=== PATIENT | male | born 1935 | race Caucasian/White ===

== ENCOUNTER 2020-05-20 18:02 | Inpatient (IN) | payer OTHER ==
[2020-05-20 18:23] VITALS: BMI 21.2
[2020-05-20 19:02] LABS: BASO % 0.2 % (0-2.0); EOS % 0.4 % (0-4.5); HEMOGLOBIN 12.2 GM/dl (11.7-16.9); MCH 29.4 pg (25.7-33.7); MEAN CELL VOLUME 89.1 fl (80-96); MEAN PLT VOLUME 7.8 fl (7.5-11.1); MONO % 6.3 % (3.8-10.2); NEUT % 88.1 % (42.8-82.8); PLATELET COUNT 270 K/MM3 (134-434); RBC 4.16 M/mm3 (4.00-5.60); RDW 13.4 % (11.9-15.9); WHITE BLOOD COUNT 6.6 K/mm3 (4.0-10.8)
[2020-05-20 19:10] LABS: ALBUMIN 3.3 g/dl (3.4-5.0); BILIRUBIN,TOTAL 0.7 mg/dl (0.2-1); CALCIUM 8.9 mg/dl (8.5-10); CREATININE 0.9 mg/dl (0.55-1.3); TOT PROT 6.7 g/dl (6.4-8.2)
[2020-05-20] MEDS ORDERED: oxyCODONE HCL 5 MG TABLET PO ONE (19:55)
[2020-05-20] MEDS ORDERED: oxyCODONE HCL 5 MG TABLET ONE (19:56)
[2020-05-20] MEDS ORDERED: LORazepam 2 MG/ML SDV VIAL ONE (23:10)
[2020-05-20] MEDS ORDERED: LORazepam 1 MG TABLET PO ONE (23:15)
[2020-05-20] MEDS: DEXTROSE 5%-NORMAL SALINE 1,000 ML IV SCH (23:50)
[2020-05-21] MEDS ORDERED: morphine SULFATE 4 MG/ML VIAL ONE (02:03)
[2020-05-21] MEDS ORDERED: morphine SULFATE 4 MG/ML VIAL IVPUSH PRN (06:19)
[2020-05-21] MEDS ORDERED: LORazepam 2 MG/ML SDV VIAL IVPUSH PRN (06:20)
[2020-05-21 07:58] LABS: BASO % 0.4 % (0-2.0); EOS % 0.4 % (0-4.5); HEMOGLOBIN 12.4 GM/dl (11.7-16.9); LYMPH % 10.2 % (8-40); MCH 29.5 pg (25.7-33.7); MCHC 32.6 g/dl (32.0-35.9); MEAN CELL VOLUME 90.5 fl (80-96); MEAN PLT VOLUME 7.9 fl (7.5-11.1); MONO % 8.1 % (3.8-10.2); NEUT % 80.9 % (42.8-82.8); PLATELET COUNT 260 K/MM3 (134-434); RBC 4.19 M/mm3 (4.00-5.60); RDW 13.8 % (11.9-15.9); WHITE BLOOD COUNT 4.9 K/mm3 (4.0-10.8)
[2020-05-21 08:05] LABS: ALBUMIN 3.3 g/dl (3.4-5.0); CALCIUM 8.8 mg/dl (8.5-10); CREATININE 0.7 mg/dl (0.55-1.3); MAGNESIUM 1.6 mg/dL (1.8-2.4); PHOSPHOROUS 3.5 mg/dl (2.5-4.9); TOT PROT 6.7 g/dl (6.4-8.2)
[2020-05-21 08:09] LABS: ACTIVATED PTT 27.3 SECONDS (25.2-36.5)
[2020-05-21 08:13] LABS: INR 1.18 (0.82-1.09); PROTHROMBIN TIME (PATIENT) 13.1 SEC (10.2-13.0)
[2020-05-21] MEDS ORDERED: ACETAMINOPHEN 1000 MG/100 ML BAG IVPB PRN (09:44)
[2020-05-21] MEDS ORDERED: HEPARIN NA (PORCINE) 5,000 UNITS/ML 1ML VIAL SQ SCH (10:00)
[2020-05-21] MEDS: KETOROLAC TROMETHAMINE 30 MG/1 ML VIAL IVPUSH SCH ×2 (10:06→17:34)
[2020-05-21] MEDS ORDERED: MAGNESIUM SULF 50% (8.12 MEQ/2 ML-1 GM VIAL) IVPB ONE (12:18)
[2020-05-21] MEDS ORDERED: MAGNESIUM SULFATE IN WATER 2 GM/50 ML IVPB IVPB ONE (12:30)
[2020-05-21] MEDS ORDERED: FENTANYL PATCH WASTE MC PRN (18:56)
[2020-05-21] MEDS ORDERED: LORazepam 1 MG TABLET PO SCH (19:00)
[2020-05-21] MEDS ORDERED: fentaNYL 100mcg/hr PATCH.TD72 TD SCH (19:00)
[2020-05-21] MEDS ORDERED: PATIENT'S OWN MEDICATION (NON-FORMULARY) (Oxycodone Hcl [Roxicodone] 15 MG Tablet) PO SCH (19:00)
[2020-05-21] MEDS ORDERED: fentaNYL 50mcg/hr PATCH.TD72 TD SCH (20:30)
[2020-05-21] MEDS: LORazepam 1 MG TABLET PO SCH (21:39)
[2020-05-22] MEDS: DEXTROSE 5%-NORMAL SALINE 1,000 ML IV SCH (00:02)
[2020-05-22] MEDS: KETOROLAC TROMETHAMINE 30 MG/1 ML VIAL IVPUSH SCH ×3 (01:27→17:40)
[2020-05-22] MEDS: LORazepam 1 MG TABLET PO SCH (21:14)
[2020-05-22] MEDS: DORZOLAMIDE 2% HCL OPHTHALMIC SOLUTION 10 ML BOTTLE OU SCH (21:15)
[2020-05-22] MEDS: BRIMONIDINE TARTRATE 0.2% OPHTHALMIC 5 ML BOTTLE OU SCH (21:16)
[2020-05-22] MEDS: LATANOPROST 0.005% OPHTH SOLN 2.5ML BOTTLE OU SCH (21:17)
[2020-05-22] MEDS: TIMOLOL 0.5% OPHTHALMIC SOL 5 ML BOTTLE OU SCH (21:17)
[2020-05-22] MEDS ORDERED: DORZOLAMIDE 2% HCL OPHTHALMIC SOLUTION 10 ML BOTTLE OU SCH (22:00)
[2020-05-22] MEDS: oxyCODONE HCL 5 MG TABLET PO PRN (23:35)
[2020-05-23] MEDS: DEXTROSE 5%-NORMAL SALINE 1,000 ML IV SCH (00:04)
[2020-05-23] MEDS: KETOROLAC TROMETHAMINE 30 MG/1 ML VIAL IVPUSH SCH ×2 (01:33→09:32)
[2020-05-23] MEDS: BRIMONIDINE TARTRATE 0.2% OPHTHALMIC 5 ML BOTTLE OU SCH ×3 (07:11→21:28)
[2020-05-23 08:53] LABS: ALBUMIN 3.1 g/dl (3.4-5.0); CALCIUM 8.6 mg/dl (8.5-10); CREATININE 0.6 mg/dl (0.55-1.3); MAGNESIUM 1.7 mg/dL (1.8-2.4); TOT PROT 6.4 g/dl (6.4-8.2)
[2020-05-23] MEDS: TIMOLOL 0.5% OPHTHALMIC SOL 5 ML BOTTLE OU SCH ×2 (09:33→21:29)
[2020-05-23] MEDS: DORZOLAMIDE 2% HCL OPHTHALMIC SOLUTION 10 ML BOTTLE OU SCH ×2 (09:34→21:29)
[2020-05-23 09:54] LABS: BASO % 0.4 % (0-2.0); EOS % 2.8 % (0-4.5)
[2020-05-23 09:57] LABS: HEMATOCRIT 30.7 % (35.4-49); HEMOGLOBIN 10.3 GM/dL (11.7-16.9); LYMPH % 12.1 % (8-40); MCH 29.2 pg (25.7-33.7); MCHC 33.7 g/dl (32.0-35.9); MEAN CELL VOLUME 86.7 fl (80-96); MONO % 7.5 % (3.8-10.2); NEUT % 77.2 % (42.8-82.8); PLATELET COUNT 188 K/MM3 (134-434); RBC 3.54 M/mm3 (4.00-5.60); RDW 14.2 % (11.9-15.9); WHITE BLOOD COUNT 4.3 K/mm3 (4.0-10.0)
[2020-05-23] MEDS: oxyCODONE HCL 5 MG TABLET PO PRN (17:11)
[2020-05-23] MEDS: KETOROLAC TROMETHAMINE 30 MG/1 ML VIAL IVPUSH PRN (18:08)
[2020-05-23] MEDS: MAGNESIUM OXIDE 400 MG TABLET (FP) PO SCH (21:28)
[2020-05-23] MEDS: LORazepam 1 MG TABLET PO SCH (21:28)
[2020-05-23] MEDS: LATANOPROST 0.005% OPHTH SOLN 2.5ML BOTTLE OU SCH (21:29)
[2020-05-24] MEDS: KETOROLAC TROMETHAMINE 30 MG/1 ML VIAL IVPUSH PRN ×2 (02:35→14:56)
[2020-05-24] MEDS: BRIMONIDINE TARTRATE 0.2% OPHTHALMIC 5 ML BOTTLE OU SCH ×3 (06:56→21:45)
[2020-05-24] MEDS: MAGNESIUM OXIDE 400 MG TABLET (FP) PO SCH ×2 (09:01→21:38)
[2020-05-24] MEDS: DORZOLAMIDE 2% HCL OPHTHALMIC SOLUTION 10 ML BOTTLE OU SCH ×2 (09:01→21:45)
[2020-05-24] MEDS: TIMOLOL 0.5% OPHTHALMIC SOL 5 ML BOTTLE OU SCH ×2 (09:01→21:45)
[2020-05-24] MEDS: DEXTROSE 5%-NORMAL SALINE 1,000 ML IV SCH (10:18)
[2020-05-24] MEDS: oxyCODONE HCL 5 MG TABLET PO PRN (11:33)
[2020-05-24] MEDS ORDERED: ACETAMINOPHEN 650 MG/20.3 ML ORAL SOLUTION (CUPS) PO ONE (19:46)
[2020-05-24] MEDS ORDERED: fentaNYL 50mcg/hr PATCH.TD72 TD SCH (21:00)
[2020-05-24] MEDS: LORazepam 1 MG TABLET PO SCH (21:38)
[2020-05-24] MEDS: LATANOPROST 0.005% OPHTH SOLN 2.5ML BOTTLE OU SCH (21:45)
[2020-05-25] MEDS: BRIMONIDINE TARTRATE 0.2% OPHTHALMIC 5 ML BOTTLE OU SCH ×2 (06:09→14:12)
[2020-05-25] MEDS: KETOROLAC TROMETHAMINE 30 MG/1 ML VIAL IVPUSH PRN (09:35)
[2020-05-25] MEDS: MAGNESIUM OXIDE 400 MG TABLET (FP) PO SCH (09:35)
[2020-05-25] MEDS: TIMOLOL 0.5% OPHTHALMIC SOL 5 ML BOTTLE OU SCH (09:36)
[2020-05-25] MEDS: DORZOLAMIDE 2% HCL OPHTHALMIC SOLUTION 10 ML BOTTLE OU SCH (09:36)
[2020-05-25 14:02] VITALS: BP 109/60; PULSE 90; TEMP 97.8
[2020-05-25] MEDS: oxyCODONE HCL 5 MG TABLET PO PRN (14:18)
[2020-05-25] MEDS ORDERED: ACETAMINOPHEN 650 MG/20.3 ML ORAL SOLUTION (CUPS) PO ONE (14:45)
== END 2020-05-25 14:44 | disposition hospice, home (50) | DRG 563 ==
LOC: FER 18:02 → FM/S 22:24
PROVIDERS: ADMIT Internal Medicine; ATTEND Nurse Practitioner Acute Care
DX: S42.211A Unspecified displaced fracture of surgical neck of right humerus, initial encounter for closed fracture (principal); C23 Malignant neoplasm of gallbladder; R64 Cachexia; Z68.21 Body mass index [BMI] 21.0-21.9, adult; I25.10 Atherosclerotic heart disease of native coronary artery without angina pectoris; Z51.5 Encounter for palliative care; W19.XXXA Unspecified fall, initial encounter; Y93.89 Activity, other specified; Y92.009 Unspecified place in unspecified non-institutional (private) residence as the place of occurrence of the external cause; Y99.8 Other external cause status; Z66 Do not resuscitate
CPT/HCPCS: 36415; 70450-TC; 71045-TC-FY; 72125-TC; 73030-TC-RT-FY; 80053; 82550; 83735; 84100; 84484; 85025; 85610; 85730; 93005; 97116-GP; 97162-GP; 99285-25; C9803; J0131; U0003